=== PATIENT | male | born 2000 | race Hispanic/Latino ===

== ENCOUNTER 2018-07-25 02:53 | Emergency (ER) | payer SELFPAY ==
[2018-07-25] MEDS ORDERED: Ondansetron HCl/PF 4 MG/2 ML Vial ONE (03:10)
[2018-07-25] MEDS ORDERED: Dicyclomine 20 MG TAB ONE (03:58)
[2018-07-25 04:30] LABS: Bilirubin Negative (Negative); Blood, Urine Negative (Negative); Clarity CLEAR (Clear); Glucose, Urine (Dipstick) Negative (Negative); Leukocyte Negative (Negative); Nitrite Negative (Negative); Protein, Urine (Dipstick) Negative (Neg-Trace); Specific Gravity, Urine 1.019 (1.002-1.036); Urobilinogen 0.2 mg/dL (0.2-1.0); pH, Urine 6.5 (5.0-9.0)
[2018-07-25 04:41] LABS: #Basophils 0.1 thou/uL (0.0-0.2); #Eosinphils 0.2 thou/uL (0.0-0.7); #Lymphocytes 4.8 thou/uL (1.20-3.40); #Monocytes 1.1 thou/uL (0.11-0.59); #Neutrophils 5.6 thou/uL (1.40-6.50); %Eosinophils 1.5 % (0.0-10.0); %Lymphocytes 40.4 % (28.0-48.0); %Monocytes 9.6 % (0.0-4.0); %Neutrophils 47.6 % (31.0-61.0); Hemoglobin 17.9 g/dL (14.0-18.0); Mean Corpuscular HGB CONC 34.9 g/dL (32.0-36.0); Mean Corpuscular Hemoglobin 30.3 pg (25.0-35.0); Mean Platelet Volume 6.9 fL (7.4-10.4); Platelet Count 287 thou/uL (130-400); RBC Distribution Width 12.4 % (11.5-14.5); White Blood Cell (WBC) Count 11.8 thou/uL (4.8-10.8)
[2018-07-25 04:54] LABS: ALT (SGPT) 26 U/L (8-55); AST (SGOT) 18 U/L (5-34); Albumin 4.6 g/dL (3.5-5.0); Alkaline Phosphatase 87 U/L (Less than 750); Anion Gap 10 mmol/L (10-20); BUN (Urea Nitrogen) 10 mg/dL (8.9-20.6); Bilirubin, Total 0.8 mg/dL (0.2-1.2); Calc. Creatinine Clearance 0 mL/min (70-130); Calcium 9.6 mg/dL (7.8-10.44); Carbon Dioxide 27 mmol/L (22-29); Chloride 103 mmol/L (98-107); Estimated GFR-MDRD 76; Globulin 3.5 g/dL (2.4-3.5); Glucose 121 mg/dL (70-105); Lipase 47 U/L (8-78); Potassium 3.5 mmol/L (3.5-5.1); Protein, Total 8.1 g/dL (6.0-8.3); Sodium 136 mmol/L (136-145)
== END 2018-07-25 05:36 | disposition home or self-care (01) ==
LOC: ERS 02:53
DX: K29.70 Gastritis, unspecified, without bleeding (principal); F17.210 Nicotine dependence, cigarettes, uncomplicated
CPT/HCPCS: 80053; 81003; 83690; 85025; 93005; 96361; 96374; J2405

== ENCOUNTER 2018-11-17 21:13 | Emergency (ER) | payer SELFPAY ==
[2018-11-17 22:03] LABS: #Basophils 0.1 thou/uL (0.0-0.2); #Eosinphils 0.2 thou/uL (0.0-0.7); #Lymphocytes 2.3 thou/uL (1.20-3.40); #Monocytes 0.7 thou/uL (0.11-0.59); #Neutrophils 4.3 thou/uL (1.40-6.50); %Basophils 1.4 % (0.0-1.0); %Eosinophils 3.2 % (0.0-10.0); %Lymphocytes 30.3 % (28.0-48.0); %Monocytes 9.1 % (0.0-4.0); %Neutrophils 56.1 % (31.0-61.0); Hemoglobin 16.5 g/dL (14.0-18.0); Mean Corpuscular HGB CONC 34.6 g/dL (32.0-36.0); Mean Corpuscular Volume 86.8 fL (78.0-98.0); Mean Platelet Volume 6.9 fL (7.4-10.4); Platelet Count 289 thou/uL (130-400); RBC Distribution Width 11.8 % (11.5-14.5); Red Blood Cell (RBC) Count 5.51 mill/uL (4.00-5.20); White Blood Cell (WBC) Count 7.7 thou/uL (4.8-10.8)
--- NOTE | 2018-11-17 22:18 | RAD ---
TWO VIEWS OF THE CHEST: 11/17/18 COMPARISON: None. HISTORY: Chest pain. FINDINGS: Two views of the chest show normal sized cardiomediastinal silhouette. There is no evidence of consol idation, mass, or pleural effusion. The bones are unremarkable. IMPRESSION: No evidence of acute cardiopulmonary disease. POS: [facility]
[2018-11-17 22:24] LABS: ALT (SGPT) 22 U/L (8-55); AST (SGOT) 18 U/L (5-34); Albumin 4.5 g/dL (3.5-5.0); Alkaline Phosphatase 95 U/L (Less than 750); Anion Gap 13 mmol/L (10-20); BUN (Urea Nitrogen) 10 mg/dL (8.9-20.6); Bilirubin, Total 0.5 mg/dL (0.2-1.2); Calc. Creatinine Clearance 0 mL/min (70-130); Calcium 9.7 mg/dL (7.8-10.44); Carbon Dioxide 25 mmol/L (22-29); Chloride 107 mmol/L (98-107); Estimated GFR-MDRD Greater than 90; Globulin 3.5 g/dL (2.4-3.5); Glucose 101 mg/dL (70-105); Potassium 4.7 mmol/L (3.5-5.1); Sodium 140 mmol/L (136-145)
[2018-11-17 22:26] LABS: Amphetamine Not Detected (NotDetected); Barbiturates Screen Not Detected (NotDetected); Benzodiazepine Screen Not Detected (NotDetected); Cocaine Metabolite Screen Not Detected (NotDetected); Medtox Control Line Valid? VALID (VALID); Medtox Reader # READER 1; Methadone Not Detected (NotDetected); Methamphetamine Not Detected (NotDetected); Opiate Screen Not Detected (NotDetected); Oxycodone Screen Not Detected (NotDetected); Phencyclidine (PCP) Not Detected (NotDetected); THC/Cannabinoid Screen Not Detected (NotDetected); Tricyclic Screen Not Detected (NotDetected)
[2018-11-17] MEDS ORDERED: Famotidine/PF 20 mg/2ml Vial ONE (22:58)
--- NOTE | 2018-11-19 15:48 | EKG ---
Test Reason : Blood Pressure : / mmHG Vent. Rate : 082 BPM Atrial Rate : 082 BPM P-R Int : 130 ms QRS Dur : 084 ms QT Int : 322 ms P-R-T Axes : 004 096 032 degrees QTc Int : 376 ms Normal sinus rhythm Rightward axis ST elevation, consider early repolarization Borderline ECG Confirmed by DARWIN DURAN DO ([id number]), publication editor [facility] ([id number]) on 11/19/2018 3:48:03 PM Referred By: Confirmed By:DARWIN DURAN DO
== END 2018-11-17 23:21 | disposition home or self-care (01) ==
LOC: ERS 21:13
DX: T51.91XA Toxic effect of unspecified alcohol, accidental (unintentional), initial encounter (principal); R07.9 Chest pain, unspecified; F17.210 Nicotine dependence, cigarettes, uncomplicated
CPT/HCPCS: 36415; 71046; 80053; 80306; 84484; 85025; 93005; 96374; S0028